=== PATIENT | female | born 1990 | race Caucasian/White ===

== ENCOUNTER 2017-03-01 21:07 | Emergency (ER) | payer OTHER ==
[2017-03-01 21:18] VITALS: BP 121/66
== END 2017-03-01 22:54 | disposition other institution (70) ==
LOC: ED 21:07
DX: Z02.89 Encounter for other administrative examinations (principal)

== ENCOUNTER 2019-07-26 22:01 | Emergency (ER) | payer OTHER ==
[~2019-07-26] VITALS: Ht 165.1 cm; Wt 73.5 kg
[2019-07-26 22:11] VITALS: BP 127/72; Ht 165.1 cm; Wt 73.5 kg
[2019-07-26 23:05] LABS: microscopic required? NO
[2019-07-26 23:09] LABS: BASOPHIL % 0.4 % (0-2); PLATELET COUNT 328 x10^3mcL (130-400); RED CELL DISTRIBUTION WIDTH 13.5 % (11.5-14.5)
[2019-07-26 23:11] LABS: UA SPECIFIC GRAVITY 1.025 (1.005-1.035); urine erythrocyte NEGATIVE (NEGATIVE)
[2019-07-26 23:21] LABS: CARBON DIOXIDE 28.7 mmol/L (21-32); CHLORIDE SERUM 104 mmol/L (98-107); CREATININE SERUM 0.8 mg/dL (0.6-1.0); GFR1 > 60 mL/min; GLUCOSE SERUM 100 mg/dL (74-106); POTASSIUM SERUM 3.7 mmol/L (3.5-5.1); SODIUM SERUM 140 mmol/L (136-145)
[2019-07-26 23:25] LABS: ALKALINE PHOSPHATASE 76 U/L (46-116); ALT/SGPT 27 U/L (14-59); AST/SGOT 22 U/L (15-37); BILIRUBIN TOTAL 0.2 mg/dL (0.20-1.00); LIPASE 95 IU/L (73-393); TOTAL PROTEIN, SERUM 7.3 g/dL (6.4-8.2)
== END 2019-07-27 00:20 | disposition home or self-care (01) ==
LOC: ED 22:01
PROVIDERS: Emergency Medicine
DX: N83.202 Unspecified ovarian cyst, left side (principal); K59.00 Constipation, unspecified
CPT/HCPCS: 36415

== ENCOUNTER 2019-10-28 11:52 | Emergency (ER) | payer SELFPAY ==
[~2019-10-28] VITALS: Ht 167.6 cm; Wt 64.0 kg
[2019-10-28 12:23] VITALS: BP 133/79; Ht 167.6 cm; Wt 64.0 kg
== END 2019-10-28 14:30 | disposition home or self-care (01) ==
LOC: ED 11:52
DX: M79.10 Myalgia, unspecified site (principal); R11.0 Nausea; J02.9 Acute pharyngitis, unspecified; Z20.828 Contact with and (suspected) exposure to other viral communicable diseases
CPT/HCPCS: U0003-CS

== ENCOUNTER 2020-03-07 14:56 | Emergency (ER) | payer OTHER ==
[~2020-03-07] VITALS: Ht 170.2 cm; Wt 73.0 kg
[2020-03-07 15:20] VITALS: BP 133/67; Ht 170.2 cm; Wt 73.0 kg
== END 2020-03-07 16:46 | disposition home or self-care (01) ==
LOC: ED 14:56
DX: A64 Unspecified sexually transmitted disease (principal); N34.2 Other urethritis
CPT/HCPCS: 87491; 87591; J0696

== ENCOUNTER 2020-03-30 23:00 | Emergency (ER) | payer OTHER ==
[~2020-03-30] VITALS: Ht 165.1 cm; Wt 69.4 kg
[2020-03-30 23:24] VITALS: BP 116/55; Ht 165.1 cm; Wt 69.4 kg
== END 2020-03-31 01:08 | disposition home or self-care (01) ==
LOC: ED 23:00
DX: N93.9 Abnormal uterine and vaginal bleeding, unspecified (principal)
CPT/HCPCS: 87491; 87591; J0696

== ENCOUNTER 2020-04-14 15:11 | Emergency (ER) | payer OTHER ==
[~2020-04-14] VITALS: Ht 170.2 cm; Wt 68.9 kg
[2020-04-14 15:31] VITALS: Ht 170.2 cm; Wt 68.9 kg
[2020-04-14 18:21] VITALS: BP 122/82
== END 2020-04-14 18:21 | disposition home or self-care (01) ==
LOC: ED 15:11
DX: L98.9 Disorder of the skin and subcutaneous tissue, unspecified (principal); Z11.3 Encounter for screening for infections with a predominantly sexual mode of transmission
CPT/HCPCS: 87491; 87591; J0696